=== PATIENT | female | born 1980 | race Asian ===

== ENCOUNTER 2017-07-28 13:08 | Outpatient (CLI) | payer MEDICAID ==
[2017-07-28 14:09] LABS: RUPTURE FETAL MEMBRANES NEGATIVE (NEGATIVE)
== END 2017-07-28 14:50 | disposition home or self-care (01) ==
LOC: OBT 13:08 → L-D 13:08 → OBT 14:50
DX: O42.913 Preterm premature rupture of membranes, unspecified as to length of time between rupture and onset of labor, third trimester (principal); Z3A.36 36 weeks gestation of pregnancy
CPT/HCPCS: 76818; 84112

== ENCOUNTER 2017-08-18 10:31 | Inpatient (IN) | payer MEDICAID ==
[2017-08-18] MEDS ORDERED: LIDOCAINE 1% (MPF) 30 ML INJ INJ (14:30)
[2017-08-18] MEDS ORDERED: CARBOPROST 250 MCG INJ IM (14:30)
[2017-08-18] MEDS ORDERED: OXYTOCIN 30 UNITS/LR 500 ML IV ×2 (14:30)
[2017-08-18] MEDS ORDERED: MISOPROSTOL 200 MCG TAB PR (14:30)
[2017-08-18] MEDS ORDERED: IBUPROFEN 600 MG TAB PO (14:30)
[2017-08-18] MEDS ORDERED: BUTORPHANOL 2 MG INJ IV (14:30)
[2017-08-18] MEDS ORDERED: METHYLERGONOVINE 0.2 MG INJ IM (14:30)
[2017-08-18 15:14] LABS: ADD MAN DIFF? NO
[2017-08-18 15:19] LABS: WHITE BLOOD COUNT 6.7 10^3/ul (4.8-10.8)
[2017-08-18 15:19] LABS: BASOPHILS % 0.4 % (0.0-2.0); EOSINOPHILS # 0.1 10^3/ul (0.0-0.5); EOSINOPHILS % 1.6 % (0.0-7.0); HEMATOCRIT 39.5 % (37.0-47.0); HEMOGLOBIN 13.4 g/dl (12.0-16.0); LYMPHOCYTES # 2.3 10^3/ul (0.8-2.9); LYMPHOCYTES % 34.9 % (15.0-51.0); MEAN CORPUSCULAR HEMOGLOBIN 30.9 pg (29.0-33.0); MEAN CORPUSCULAR HGB CONC 33.9 g/dl (32.0-37.0); MEAN CORPUSCULAR VOLUME 91.2 fl (82.0-101.0); MEAN PLATELET VOLUME 11.2 fl (7.4-10.4); MONOCYTE # 0.4 10^3/ul (0.3-0.9); MONOCYTES % 6.4 % (0.0-11.0); NEUTROPHIL # 3.7 10^3/ul (1.6-7.5); NEUTROPHILS % 55.1 % (39.0-77.0); NUCLEATED RED BLOOD CELLS # 0.1 10^3/ul (0.0-0.0); NUCLEATED RED BLOOD CELLS% 0.7 /100WBC (0.0-0.0); PLATELET COUNT 213 10^3/UL (140-415); RED BLOOD COUNT 4.33 10^6/ul (4.20-5.40); RED CELL DISTRIBUTION WIDTH 14.9 % (11.5-14.5)
[2017-08-18 15:42] LABS: INR 0.82; PROTIME 11.3 Sec (11.9-14.9); PT RATIO 0.9
[2017-08-18 15:43] LABS: PARTIAL THROMBOPLASTIN TIME 27.9 Sec (25.0-35.0)
[2017-08-18] MEDS: LACTATED RINGER'S 1,000 ML IV ×2 (15:46→19:47)
[2017-08-18] MEDS: DINOPROSTONE 10 MG VAG SUPP VAG (15:47)
[2017-08-18 16:08] LABS: HEPATITIS B SURFACE ANTIGEN NEGATIVE (NEGATIVE)
[2017-08-18 20:03] LABS: ALANINE AMINOTRANSFERASE 17 IU/L (13-69); ALBUMIN 3.7 g/dl (3.3-4.9); ALBUMIN/GLOBULIN RATIO 0.97; ALKALINE PHOSPHATASE 234 IU/L (42-121); ANION GAP 15 (8-16); ASPARTATE AMINO TRANSFERASE 30 IU/L (15-46); BILIRUBIN,INDIRECT 0.3 mg/dl (0-1.1); BILIRUBIN,TOTAL 0.3 mg/dl (0.2-1.3); BLOOD UREA NITROGEN 10 mg/dl (7-20); CALCIUM 9.4 mg/dl (8.4-10.2); CARBON DIOXIDE 18 mmol/L (21-31); CHLORIDE 107 mmol/L (97-110); CREATININE 0.58 mg/dl (0.44-1.00); GLUCOSE 87 mg/dl (70-220); SODIUM 136 mmol/L (135-144); TOTAL PROTEIN 7.5 g/dl (6.1-8.1); URIC ACID 5.2 mg/dl (3.1-7.9)
[2017-08-18 21:20] LABS: ADD UMIC YES; UR ASCORBIC ACID NEGATIVE (NEGATIVE); UR BACTERIA FEW /HPF (NONE SEEN); UR BILIRUBIN (Dip) NEGATIVE (NEGATIVE); UR BLOOD (Dip) NEGATIVE (NEGATIVE); UR CLARITY CLEAR (CLEAR); UR COLOR STRAW (YELLOW); UR GLUCOSE (Dip) NEGATIVE (NEGATIVE); UR KETONES (Dip) TRACE mg/dL (NEGATIVE); UR LEUKOCYTE ESTERASE (Dip) 2+ Leu/ul (NEGATIVE); UR NITRITE (Dip) NEGATIVE (NEGATIVE); UR RBC 3 /HPF (0-5); UR SPECIFIC GRAVITY (Dip) 1.009 (1.003-1.030); UR SQUAMOUS EPITHELIAL CELL FEW /HPF (FEW); UR TOTAL PROTEIN (Dip) 1+ mg/dl (NEGATIVE); UR UROBILINOGEN (Dip) NEGATIVE (NEGATIVE); UR WBC 6 /HPF (0-5)
[2017-08-19] MEDS: LACTATED RINGER'S 1,000 ML IV ×3 (03:11→14:23)
[2017-08-19] MEDS ORDERED: FENTAnyl 2MCG/ML-ROPIV 0.2% 100 ML (14:28)
[2017-08-19] MEDS ORDERED: NALOXONE (0.4 MG/ML) INJ IV ×2 (15:00→20:00)
[2017-08-19] MEDS ORDERED: FENTAnyl 2MCG/ML-ROPIV 0.2% 100 ML BAG EPI (15:00)
[2017-08-19] MEDS ORDERED: TERBUTALINE 1 ML (15:54)
[2017-08-19] MEDS: TERBUTALINE 1 MG/ML INJ SC (15:57)
[2017-08-19] MEDS ORDERED: CEFAZOLIN 2 GM/50 ML (PMX) 50 ML IVPB (18:22)
[2017-08-19] MEDS ORDERED: OXYTOCIN 30 UNITS/LR 500 ML IV ×2 (18:30→23:00)
[2017-08-19] MEDS ORDERED: CEFAZOLIN 2 GM/50 ML (PMX) 50 ML IV (18:30)
[2017-08-19] MEDS ORDERED: OXYTOCIN 10 UNIT INJ (18:44)
[2017-08-19] MEDS ORDERED: ONDANSETRON 4 MG INJ (19:10)
[2017-08-19] MEDS ORDERED: METOCLOPRAMIDE 10 MG INJ (19:10)
[2017-08-19] MEDS ORDERED: LIDOCAINE 2% (SDV) 5 ML INJ (19:10)
[2017-08-19] MEDS ORDERED: DEXAMETHASONE 4 MG/ML 1 ML INJ (19:10)
[2017-08-19] MEDS ORDERED: morphine SULFATE/PF (10 MG/10 ML) INJ (19:11)
[2017-08-19] MEDS ORDERED: MEPERIDINE 100 MG INJ (19:20)
[2017-08-19] MEDS ORDERED: DIPHENHYDRAMINE 50 MG INJ IV (20:00)
[2017-08-19] MEDS ORDERED: NALBUPHINE HCL (10 MG/1 ML) INJ IV (20:00)
[2017-08-19] MEDS ORDERED: HYDROmorphONE 0.5 MG/0.5 ML SYG IV (20:00)
[2017-08-19] MEDS ORDERED: ONDANSETRON 4 MG INJ IV (20:00)
[2017-08-19] MEDS ORDERED: ACETAMINOPHEN 500 MG TAB PO (20:00)
[2017-08-19] MEDS ORDERED: morphine 2 MG INJ IV (20:00)
[2017-08-19] MEDS ORDERED: HYDROCODONE/APAP (5/325) TAB PO ×2 (20:00→23:00)
[2017-08-19] MEDS: HYDROmorphONE 0.5 MG/0.5 ML SYG IV (20:17)
[2017-08-19] MEDS: morphine 2 MG INJ IV (21:15)
[2017-08-19] MEDS: MINERAL OIL LIGHT 10 ML VIAL TOP (22:02)
[2017-08-19] MEDS: OXYTOCIN 30 UNITS/LR 500 ML IV (22:11)
[2017-08-19 22:14] LABS: RAPID PLASMA REAGIN NONREACTIVE (NR)
[2017-08-19 22:22] LABS: ADD MAN DIFF? NO
[2017-08-19 22:24] LABS: WHITE BLOOD COUNT 18.4 10^3/ul (4.8-10.8)
[2017-08-19 22:24] LABS: BASOPHILS % 0.2 % (0.0-2.0); HEMATOCRIT 30.4 % (37.0-47.0); HEMOGLOBIN 10.4 g/dl (12.0-16.0); LYMPHOCYTES # 1.4 10^3/ul (0.8-2.9); LYMPHOCYTES % 7.5 % (15.0-51.0); MEAN CORPUSCULAR HEMOGLOBIN 31.6 pg (29.0-33.0); MEAN CORPUSCULAR HGB CONC 34.2 g/dl (32.0-37.0); MEAN CORPUSCULAR VOLUME 92.4 fl (82.0-101.0); MONOCYTE # 0.8 10^3/ul (0.3-0.9); MONOCYTES % 4.1 % (0.0-11.0); NEUTROPHILS % 87.2 % (39.0-77.0); NUCLEATED RED BLOOD CELLS% 0.2 /100WBC (0.0-0.0); PLATELET COUNT 196 10^3/UL (140-415); RED BLOOD COUNT 3.29 10^6/ul (4.20-5.40); RED CELL DISTRIBUTION WIDTH 14.9 % (11.5-14.5)
[2017-08-19 22:45] LABS: ALANINE AMINOTRANSFERASE 19 IU/L (13-69); ALBUMIN 2.7 g/dl (3.3-4.9); ALBUMIN/GLOBULIN RATIO 0.87; ALKALINE PHOSPHATASE 169 IU/L (42-121); ANION GAP 14 (8-16); ASPARTATE AMINO TRANSFERASE 30 IU/L (15-46); BILIRUBIN,INDIRECT 0.4 mg/dl (0-1.1); BILIRUBIN,TOTAL 0.4 mg/dl (0.2-1.3); BLOOD UREA NITROGEN 11 mg/dl (7-20); CARBON DIOXIDE 17 mmol/L (21-31); CHLORIDE 110 mmol/L (97-110); CREATININE 0.59 mg/dl (0.44-1.00); GLUCOSE 122 mg/dl (70-220); SODIUM 137 mmol/L (135-144); TOTAL PROTEIN 5.8 g/dl (6.1-8.1); URIC ACID 5.4 mg/dl (3.1-7.9)
[2017-08-19 22:55] LABS: ADD UMIC YES; UR ASCORBIC ACID NEGATIVE (NEGATIVE); UR BACTERIA FEW /HPF (NONE SEEN); UR BILIRUBIN (Dip) NEGATIVE (NEGATIVE); UR BLOOD (Dip) 3+ mg/dL (NEGATIVE); UR CLARITY CLEAR (CLEAR); UR COLOR YELLOW (YELLOW); UR GLUCOSE (Dip) NEGATIVE (NEGATIVE); UR KETONES (Dip) 1+ mg/dL (NEGATIVE); UR LEUKOCYTE ESTERASE (Dip) NEGATIVE Leu/ul (NEGATIVE); UR MUCUS FEW /HPF (NONE SEEN); UR NITRITE (Dip) NEGATIVE (NEGATIVE); UR RBC 117 /HPF (0-5); UR TOTAL PROTEIN (Dip) 2+ mg/dl (NEGATIVE); UR UROBILINOGEN (Dip) NEGATIVE (NEGATIVE); UR WBC 29 /HPF (0-5)
[2017-08-19] MEDS ORDERED: NA PHOSPHATE/BIPHOS 133 ML ENEMA PR (23:00)
[2017-08-19] MEDS ORDERED: MISOPROSTOL 200 MCG TAB PR (23:00)
[2017-08-19] MEDS ORDERED: METHYLERGONOVINE 0.2 MG INJ IM (23:00)
[2017-08-19] MEDS ORDERED: CARBOPROST 250 MCG INJ IM (23:00)
[2017-08-19] MEDS ORDERED: LANOLIN 7 GM TUBE TOP (23:00)
[2017-08-19] MEDS: CEFAZOLIN 2 GM/50 ML (PMX) 50 ML IV (23:32)
[2017-08-20] MEDS: LACTATED RINGER'S 1,000 ML IV ×4 (02:11→22:44)
[2017-08-20] MEDS: CLINDAMYCIN 300 MG CAP PO ×4 (05:32→17:45)
[2017-08-20] MEDS: CEFAZOLIN 2 GM/50 ML (PMX) 50 ML IV ×2 (06:36→15:32)
[2017-08-20 07:22] LABS: ADD MAN DIFF? NO
[2017-08-20 07:38] LABS: BASOPHILS % 0.2 % (0.0-2.0); HEMATOCRIT 24.1 % (37.0-47.0); HEMOGLOBIN 8.2 g/dl (12.0-16.0); LYMPHOCYTES # 3.1 10^3/ul (0.8-2.9); LYMPHOCYTES % 17.2 % (15.0-51.0); MEAN CORPUSCULAR HEMOGLOBIN 31.5 pg (29.0-33.0); MEAN CORPUSCULAR VOLUME 92.7 fl (82.0-101.0); MEAN PLATELET VOLUME 11.5 fl (7.4-10.4); MONOCYTE # 0.9 10^3/ul (0.3-0.9); MONOCYTES % 5.2 % (0.0-11.0); NEUTROPHIL # 13.8 10^3/ul (1.6-7.5); NEUTROPHILS % 76.6 % (39.0-77.0); NUCLEATED RED BLOOD CELLS # 0.1 10^3/ul (0.0-0.0); NUCLEATED RED BLOOD CELLS% 0.3 /100WBC (0.0-0.0); PLATELET COUNT 175 10^3/UL (140-415)
[2017-08-20] MEDS: SENNA/DOCUSATE NA (8.6MG/50MG) TAB PO ×2 (09:57→21:00)
[2017-08-20] MEDS: HYDROmorphONE 0.5 MG/0.5 ML SYG IV (10:02)
[2017-08-20] MEDS: BISACODYL 10 MG SUPP PR (12:58)
[2017-08-20] MEDS: OXYCODONE/ACETAMINOPHEN (5/325) TAB PO (17:45)
[2017-08-20] MEDS: IBUPROFEN 800 MG TAB PO (21:14)
[2017-08-21] MEDS: CLINDAMYCIN 300 MG CAP PO ×5 (00:06→23:47)
[2017-08-21] MEDS: OXYCODONE/ACETAMINOPHEN (5/325) TAB PO ×2 (00:07→12:05)
[2017-08-21] MEDS: IBUPROFEN 800 MG TAB PO ×3 (06:13→21:58)
[2017-08-21] MEDS: LACTATED RINGER'S 1,000 ML IV (06:44)
[2017-08-21] MEDS: SENNA/DOCUSATE NA (8.6MG/50MG) TAB PO ×2 (08:53→21:58)
[2017-08-21 08:59] LABS: ADD MAN DIFF? NO
[2017-08-21 09:03] LABS: BASOPHIL # 0.1 10^3/ul (0.0-0.1); BASOPHILS % 0.3 % (0.0-2.0); EOSINOPHILS # 0.1 10^3/ul (0.0-0.5); EOSINOPHILS % 0.6 % (0.0-7.0); HEMATOCRIT 21.2 % (37.0-47.0); HEMOGLOBIN 7.2 g/dl (12.0-16.0); LYMPHOCYTES # 2.9 10^3/ul (0.8-2.9); LYMPHOCYTES % 17.5 % (15.0-51.0); MEAN CORPUSCULAR VOLUME 94.2 fl (82.0-101.0); MEAN PLATELET VOLUME 11.1 fl (7.4-10.4); MONOCYTE # 0.8 10^3/ul (0.3-0.9); MONOCYTES % 4.7 % (0.0-11.0); NEUTROPHIL # 12.1 10^3/ul (1.6-7.5); NEUTROPHILS % 74.4 % (39.0-77.0); NUCLEATED RED BLOOD CELLS # 0.1 10^3/ul (0.0-0.0); NUCLEATED RED BLOOD CELLS% 0.7 /100WBC (0.0-0.0); PLATELET COUNT 187 10^3/UL (140-415); RED BLOOD COUNT 2.25 10^6/ul (4.20-5.40); RED CELL DISTRIBUTION WIDTH 15.7 % (11.5-14.5)
[2017-08-21 09:03] LABS: WHITE BLOOD COUNT 16.2 10^3/ul (4.8-10.8)
[2017-08-22] MEDS: CLINDAMYCIN 300 MG CAP PO ×2 (06:01→12:00)
[2017-08-22] MEDS: IBUPROFEN 800 MG TAB PO ×2 (06:01→13:00)
[2017-08-22 07:33] LABS: ADD MAN DIFF? NO
[2017-08-22 07:35] LABS: ABNORMAL IP MESSAGE 1; BASOPHIL # 0.1 10^3/ul (0.0-0.1); BASOPHILS % 0.4 % (0.0-2.0); EOSINOPHILS # 0.3 10^3/ul (0.0-0.5); HEMATOCRIT 19.6 % (37.0-47.0); LYMPHOCYTES # 2.6 10^3/ul (0.8-2.9); LYMPHOCYTES % 18.2 % (15.0-51.0); MEAN CORPUSCULAR HEMOGLOBIN 31.4 pg (29.0-33.0); MEAN CORPUSCULAR HGB CONC 33.2 g/dl (32.0-37.0); MEAN CORPUSCULAR VOLUME 94.7 fl (82.0-101.0); MEAN PLATELET VOLUME 10.2 fl (7.4-10.4); MONOCYTE # 0.6 10^3/ul (0.3-0.9); MONOCYTES % 4.4 % (0.0-11.0); NEUTROPHIL # 9.9 10^3/ul (1.6-7.5); NEUTROPHILS % 70.9 % (39.0-77.0); NUCLEATED RED BLOOD CELLS # 0.4 10^3/ul (0.0-0.0); NUCLEATED RED BLOOD CELLS% 2.6 /100WBC (0.0-0.0); PLATELET COUNT 214 10^3/UL (140-415); RED BLOOD COUNT 2.07 10^6/ul (4.20-5.40); RED CELL DISTRIBUTION WIDTH 15.8 % (11.5-14.5)
[2017-08-22 07:42] LABS: POSITIVE DIFF @See below
[2017-08-22 07:43] LABS: HEMOGLOBIN 6.5 g/dl (12.0-16.0); PATH REVIEW? YES
[2017-08-22] MEDS: DIPHTH/TET/ACEL PERTUSS (ADULT) 0.5 ML VIAL IM* (09:00)
[2017-08-22] MEDS: MEASLES,MUMPS,RUBELLA VACCINE INJ SC* (09:00)
[2017-08-22] MEDS: SENNA/DOCUSATE NA (8.6MG/50MG) TAB PO (09:50)
[2017-08-22] MEDS: OXYCODONE/ACETAMINOPHEN (5/325) TAB PO (09:51)
[2017-08-22 10:32] LABS: ANISOCYTOSIS 1+ (0-0); BAND NEUTROPHILS #M 0.5 10^3/ul (0.0-0.6); BAND NEUTROPHILS % (M) 4 % (0-4); EOSINOPHILS % (M) 3 % (0-7); ERYTHROBLAST% (NRBC) (M) 1 % (0-0); GIANT THROMBO% (M) 4 % (0-0); LYMPHOCYTES #M 2.8 10^3/ul (0.8-2.9); LYMPHOCYTES % (M) 20 % (15-51); MONOCYTE #M 0.2 10^3/ul (0.3-0.9); MONOCYTES % (M) 2 % (0-11); MYELOCYTES #M 0.1 10^3/ul (0.0-0.0); MYELOCYTES % (M) 1 % (0-0); PLATELET ESTIMATE NORMAL; POLYCHROMASIA 3+ (0-0); SEG NEUT #M 9.9 10^3/ul (1.6-7.5); SEGMENTED NEUTROPHILS (M) % 70 % (39-77); SMUDGE%M 4 % (0-0)
== END 2017-08-22 15:34 | disposition home or self-care (01) | DRG 766 ==
LOC: L-D 08-19 07:37 → OBT 10:31 → L-D 08-19 18:24 → PP1 08-19 22:38 → OBT 10:54 → L-D 10:54
PROVIDERS: Obstetrics & Gynecology
PROC: 10D00Z1 Extraction of Products of Conception, Low, Open Approach (ICD-10-PCS; principal; 2017-08-19)
DX: O76 Abnormality in fetal heart rate and rhythm complicating labor and delivery (principal); O75.89 Other specified complications of labor and delivery; N80.2 Endometriosis of fallopian tube; N80.1 Endometriosis of ovary; N80.0 Endometriosis of uterus; Z37.0 Single live birth; Z3A.39 39 weeks gestation of pregnancy
CPT/HCPCS: 62319; 76815; 80053; 81001; 84560; 85025; 85610; 85730; 86592; 86850; 86900; 86901; 86920; 87340; 99464

== ENCOUNTER 2017-08-23 16:09 | Emergency (ER) | payer MEDICAID ==
[2017-08-23 16:54] LABS: URINE PH (Dip) POC 6.5 (5.0-8.5)
[2017-08-23 16:54] LABS: URINE BLOOD (Dip) POC 2+ (NEGATIVE); URINE GLUCOSE (Dip) POC Negative (NEGATIVE); URINE KETONES (Dip) POC Negative (NEGATIVE); URINE LEUKOCYTE EST (Dip) POC 1+ (NEGATIVE); URINE NITRITE (Dip) POC Negative (NEGATIVE); URINE TOTAL PROTEIN POC Negative (NEGATIVE)
[2017-08-23 17:19] LABS: ADD MAN DIFF? NO
[2017-08-23 17:21] LABS: BASOPHILS % 0.4 % (0.0-2.0); EOSINOPHILS # 0.2 10^3/ul (0.0-0.5); EOSINOPHILS % 1.5 % (0.0-7.0); HEMOGLOBIN 7.3 g/dl (12.0-16.0); LYMPHOCYTES # 1.3 10^3/ul (0.8-2.9); LYMPHOCYTES % 11.4 % (15.0-51.0); MEAN CORPUSCULAR HEMOGLOBIN 31.3 pg (29.0-33.0); MEAN CORPUSCULAR HGB CONC 33.2 g/dl (32.0-37.0); MEAN CORPUSCULAR VOLUME 94.4 fl (82.0-101.0); MEAN PLATELET VOLUME 9.6 fl (7.4-10.4); MONOCYTE # 0.3 10^3/ul (0.3-0.9); MONOCYTES % 2.9 % (0.0-11.0); NEUTROPHIL # 8.8 10^3/ul (1.6-7.5); NEUTROPHILS % 79.6 % (39.0-77.0); NUCLEATED RED BLOOD CELLS # 0.4 10^3/ul (0.0-0.0); NUCLEATED RED BLOOD CELLS% 3.4 /100WBC (0.0-0.0); PLATELET COUNT 309 10^3/UL (140-415); RED BLOOD COUNT 2.33 10^6/ul (4.20-5.40); RED CELL DISTRIBUTION WIDTH 15.8 % (11.5-14.5)
[2017-08-23 17:39] LABS: ALANINE AMINOTRANSFERASE 26 IU/L (13-69); ALBUMIN 3.3 g/dl (3.3-4.9); ALBUMIN/GLOBULIN RATIO 0.94; ALKALINE PHOSPHATASE 170 IU/L (42-121); ANION GAP 14 (8-16); ASPARTATE AMINO TRANSFERASE 42 IU/L (15-46); BILIRUBIN,INDIRECT 0.3 mg/dl (0-1.1); BILIRUBIN,TOTAL 0.3 mg/dl (0.2-1.3); BLOOD UREA NITROGEN 10 mg/dl (7-20); CALCIUM 8.2 mg/dl (8.4-10.2); CARBON DIOXIDE 21 mmol/L (21-31); CHLORIDE 109 mmol/L (97-110); CREATININE 0.62 mg/dl (0.44-1.00); GLUCOSE 116 mg/dl (70-220); LIPASE 151 U/L (23-300); POTASSIUM 3.6 mmol/L (3.5-5.1); SODIUM 140 mmol/L (135-144); TOTAL PROTEIN 6.8 g/dl (6.1-8.1)
[2017-08-23 17:50] LABS: PROTIME 12.2 Sec (11.9-14.9)
[2017-08-23 17:51] LABS: PARTIAL THROMBOPLASTIN TIME 32.9 Sec (25.0-35.0)
[2017-08-23] MEDS: CEFTRIAXONE 1 GM/50 ML (PMX) 50 ML IVPB (18:41)
[2017-08-23] MEDS: SOD CHLORIDE 0.9% 1,000 ML IV (18:49)
[2017-08-23] MEDS: IBUPROFEN 600 MG TAB PO (19:01)
== END 2017-08-23 20:07 | disposition home or self-care (01) ==
LOC: E/R 16:09
DX: N39.0 Urinary tract infection, site not specified (principal); E86.0 Dehydration; D64.9 Anemia, unspecified
CPT/HCPCS: 36415; 71045; 80053; 81003; 83690; 85025; 85610; 85730; 87086; 93005; 96361; 96374; 99285-25